=== PATIENT | male | born 1990 | race Hispanic/Latino ===

== ENCOUNTER 2017-03-21 18:41 | Emergency (ER) | payer BC ==
[2017-03-21 18:56] VITALS: BP 134/87; PULSE 74; RESP 16; TEMP 97.7; O2SAT 99
--- NOTE | 2017-03-21 19:21 | ED PDOC ---
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 Patient has small laceration noted to ankle. No active bleeding noted. T.dap not UTD Past Medical History Reviewed: Nursing Documentation, Vital Signs Vital Signs: Last Vital Signs Temp 97.7 F 03/21/17 18:52 Pulse 74 03/21/17 18:52 Resp 16 03/21/17 18:52 BP 134/87 03/21/17 18:52 Pulse Ox 99 03/21/17 18:52 - Medical History PMH: No Chronic Diseases - Surgical History Surgical History: No Surg Hx - Family History Family History: States: No Known Family Hx - Living Arrangements Living Arrangements: With Friends/Others - Social History Current smoker - smoking cessation education provided: No Alcohol: Social Drugs: Denies - Allergies Allergies/Adverse Reactions: Allergies Allergy/AdvReac Type Severity Reaction Status Date / Time No Known Allergies Allergy Verified 03/21/17 18:52 Review of Systems ROS Statement: Except As Marked, All Systems Reviewed And Found Negative Skin: Positive for: Other (laceration) Physical Exam - Reviewed Nursing Documentation Reviewed: Yes Vital Signs Reviewed: Yes - Physical Exam Appears: Positive for: Well, Non-toxic, No Acute Distress Head Exam: Positive for: ATRAUMATIC, NORMAL INSPECTION, NORMOCEPHALIC Skin: Positive for: Normal Color, Warm, DRY Eye Exam: Positive for: EOMI, Normal appearance, PERRL ENT: Positive for: Normal ENT Inspection Neck: Positive for: Normal, Painless ROM Cardiovascular/Chest: Positive for: Regular Rate, Rhythm Respiratory: Positive for: CNT, Normal Breath Sounds Gastrointestinal/Abdominal: Positive for: Normal Exam, Bowel Sounds, Soft Back: Positive for: Normal Inspection Extremity: Positive for: Normal ROM, Other (3 cm laceration to distal aspect of tibial shaft, no active bleed) Neurologic/Psych: Positive for: Alert, Oriented - ECG O2 Sat by Pulse Oximetry: 99 Medical Decision Making Medical Decision Making: Site repaired by copywriter. see procedure note. Wound care discussed. T.dap administered by RN Disposition - Clinical Impression Clinical Impression: Laceration - Patient ED Disposition Is Patient to be Admitted: No - Disposition Disposition: Routine/Home Disposition Time: 20:20 Condition: STABLE Additional Instructions: Suture removal in 7-10 days Instructions: Laceration (ED), Care For Your Stitches (ED) Forms: [facility] ([place]onian) - POA Present On Arrival: None Laceration - Laceration Repair 3 Wound Length (In cm): 3 Description Of Wound: Linear Wound Cleansed With: Sterile Saline Anesthesia: Lidocaine 1% Wound Examination: Irrigated With Saline Wound Closure: Suture Suture Technique And Material Used: Nylon (5-0) Wound Complexity: Simple
== END 2017-03-21 19:41 | disposition home or self-care (01) ==
LOC: H.ER 18:41
DX: S91.012A Laceration without foreign body, left ankle, initial encounter (principal); X58.XXXA Exposure to other specified factors, initial encounter